=== PATIENT | female | born 1965 | race Caucasian/White ===

== ENCOUNTER 2020-12-12 10:08 | Emergency (ER) | payer OTHER ==
[~2020-12-12] VITALS: Ht 170.2 cm; Wt 77.1 kg
[2020-12-12] MEDS ORDERED: NORVASC10 MG (10:19)
[2020-12-12] MEDS ORDERED: PEPCID AC20 MG PO (14:57)
[2020-12-12] MEDS ORDERED: LEVOFLOXACIN750 MG PO (14:57)
== END 2020-12-12 15:11 | disposition home or self-care (01) ==
LOC: ER 10:08
DX: R10.13 Epigastric pain (principal); I10 Essential (primary) hypertension; B96.0 Mycoplasma pneumoniae [M. pneumoniae] as the cause of diseases classified elsewhere; N39.0 Urinary tract infection, site not specified; J18.9 Pneumonia, unspecified organism

== ENCOUNTER 2023-03-10 06:15 | Emergency (ER) | payer OTHER ==
[~2023-03-10] VITALS: Ht 175.3 cm; Wt 77.1 kg
[~2023-03-10 06:15] MED LIST: LEVOFLOXACIN750 MG PO; NORVASC10 MG; PEPCID AC20 MG PO
[2023-03-10] MEDS ORDERED: ZESTRIL5 MG PO (06:31)
== END 2023-03-10 08:44 | disposition home or self-care (01) ==
LOC: ER 06:16
DX: U07.1 COVID-19 (principal); R09.81 Nasal congestion; Z88.6 Allergy status to analgesic agent; I10 Essential (primary) hypertension

== ENCOUNTER 2023-05-02 06:08 | Emergency (ER) | payer OTHER ==
[~2023-05-02] VITALS: Ht 160 cm; Wt 77.1 kg
[~2023-05-02 06:08] MED LIST changes: +ZESTRIL5 MG PO
[2023-05-02] MEDS ORDERED: CIPRO500 MG PO (06:38)
[2023-05-02] MEDS ORDERED: BACTRIM 400-801 EACH PO (08:52)
== END 2023-05-02 08:59 | disposition home or self-care (01) ==
LOC: ER 06:08
DX: L05.91 Pilonidal cyst without abscess (principal); L02.91 Cutaneous abscess, unspecified